=== PATIENT | female | born 1990 | race Caucasian/White ===

== ENCOUNTER 2018-12-08 06:00 | Inpatient (IN) | payer OTHER ==
[2018-12-08] MEDS ORDERED: ELECTROLYTE-148 SOLN 500 ML IV SCH (06:45)
[2018-12-08] MEDS ORDERED: CITRIC ACID/SODIUM CITRATE 30 ML UNIT-DOSE CUP PO ONE (06:45)
[2018-12-08] MEDS ORDERED: ELECTROLYTE-148 SOLN 1,000 ML IV SCH (06:45)
[2018-12-08 06:46] VITALS: BMI 33.3
--- NOTE | 2018-12-08 06:49 | HP ---
Past Medical History - Admission Chief Complaint: scheduked RLTCS History of Present Illness: 28yo @ 39wks here for scheduled RLTCS. Declined TOLAC. 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: Alzheimer's, CVA, Dementia, Migraine, Multiple Sclerosis, Peripheral Neuropathy, Parkinson's, Seizure, Syncope, TIA, Vertigo, Other Cardiovascular: No: AFIB, Aneurysm, Aortic Insufficiency, Aortic Stenosis, CAD, CHF, Deep Vein Thrombosis, HTN, Hyperlipdemia, [place], Mitral Insufficiency, Mitral Stenosis, Murmur, Pulmonary Hypertension, Other Gastrointestinal: No: Ascites, Cancer, Constipation, Crohn's Disease, Diverticulitis, Diverticulosis, Esophageal Varices, Gastritis, GERD, GI Bleed, Hemorrhoids, Hiatal Hernia, Inflamatory Bowel Disease, Irritable Bowel Disease, Pancreatitis, Peptic Ulcer Disease, Ulcerative Colitis, Other Hepatobiliary: No: Cirrhosis, Cholelithiasis, Cholecystitis, Choledocholithiasis , Hepatitis A, Hepatitis B, Hepatitis C, Other Renal/: No: Renal Failure, Renal Inusuff, BPH, Cancer, Hematuria, Hemodialysis , Neurogenic Bladder, Renal Calculi, UTI, Other Reproductive: No: Ectopic , Endometriosis, Fibroids, PID, Polycystic Ovary Syndrome, Postmenopausal, Other ...: 2 ...Para: 1 ...Term: 1 ...: 0 ...Spon : 0 ...Induced : 0 ...Multiple Gestation: 0 ... Weeks Gestation by Dates: 40.0 ...EDC by Dates: 12/08/18 Heme/Onc: No: Anemia, B12 Deficiency, Bleeding Disorder, Cancer, Current Chemotherapy, Current Radiation Therapy, Hemochromatosis, Hypercoaguable State, Myeloproliferative Synd, Sickle Cell Disease, Sickle Cell Trait, Thrombocytopenia, Other - Past Surgical History Past Surgical History: Yes: Hx Myomectomy: No Hx Transabdominal Cerclage: No - Smoking History Smoking history: Never smoked Have you smoked in the past 12 months: No - Alcohol/Substance Use Hx Alcohol Use: No Home Medications - Allergies Allergies/Adverse Reactions: Allergies Allergy/AdvReac Type Severity Reaction Status Date / Time No Known Allergies Allergy Verified 12/08/18 06:30 - Home Medications Home Medications: Ambulatory Orders Pnv No.95/Ferrous Fum/Folic AC [ Formula] 1 each PO DAILY 12/08/18 Physical Exam - Maternity Vital Signs: Vital Signs Temperature 98.0 F 12/08/18 06:00 Pulse Rate 79 12/08/18 06:00 Respiratory Rate 18 12/08/18 06:00 Blood Pressure 123/83 12/08/18 06:00 O2 Sat by Pulse Oximetry (%) Constitutional: Yes: Well Nourished, No Distress, Calm Cardiovascular: Yes: WNL, Regular Rate and Rhythm Lungs: Clear to auscultation, Normal air movement, Other Breast(s): Yes: WNL - Abdominal Exam/OB Number of Fetuses: Single Presentation: Vertex Contractions: No Regularity: Irregular Intensity: Unaware Monitor Mode: External Heart Rate Location: [facility] Category: I Accelerations: Non-Uniform Decelerations: None - Vaginal Exam/OB Vaginal Bleediing: No Speculum Exam: No Amniotic Membrane Status: Intact Presentation: Vertex/Position - Physical Exam Edema: No Assessment/Plan 28yo @ 39wks here for scheduled RLTCS Admit to L&D NPO, IVFs Cat I tracing Rekha Valdez Ancef Risk of procedure reviewed including bleeding, infection, injury to bladder/ bowel/adnexa/vessels/nerves. All questions answered in Macedonian. Consents signed Robina Nicolas MD
[2018-12-08] MEDS ORDERED: morphine SULFATE/PF 0.5 MG/ML (2cc Syringe - QUVA) ONE (08:11)
[2018-12-08] MEDS ORDERED: PHENYLEPHRINE HCL 10 MG/1 ML SINGLE DOSE VIAL ONE (08:11)
[2018-12-08] MEDS ORDERED: ONDANSETRON 4 MG/2 ML VIAL IVPUSH PRN (08:29)
[2018-12-08] MEDS ORDERED: ceFAZolin SODIUM 1 GM VIAL ONE ×2 (08:37)
[2018-12-08] MEDS ORDERED: OXYTOCIN 10 UNITS/ML VIAL ONE ×4 (08:37→09:01)
[2018-12-08] MEDS ORDERED: oxyCODONE HCL 5 MG TABLET PO PRN (09:17)
[2018-12-08] MEDS ORDERED: IBUPROFEN 600 MG TABLET (FP) PO PRN (09:17)
[2018-12-08] MEDS ORDERED: METHYLERGONOVINE MALEATE 0.2 MG/1 ML AMP IM PRN (09:17)
[2018-12-08] MEDS ORDERED: IBUPROFEN 800 MG/8 ML IJ IVPB PRN (09:17)
--- NOTE | 2018-12-08 09:17 | OP ---
Operative Note - Note: Operative Date: 12/08/18 Pre-Operative Diagnosis: Prior , 39 week , desires Elective Repeat Operation: Repeat Low Transverse Findings: VFI, LOT, Nuchal x 1, no meconium. Apgars 9/9. Weight 9.8lbs, normal right fallopian tube, right ovary not visualized, left tube and ovaries not visualized Post-Operative Diagnosis: Same as Pre-op Surgeon: Ela Nicolas Vineyardist: Berny Sapp Anesthesiologist/SEWING MACHINE OPERATOR PLASTIC ZIPPER: Kendall Buckner Anesthesia: Spinal Estimated Blood Loss (mls): 600 Drains, Volume Out (mls): 400 (clear urine) Operative Report Dictated: Yes
[2018-12-08] MEDS ORDERED: OXYTOCIN 20 UNITS in 0.9% NS 20 UNIT/1,000 ML INFUS.BAG IV SCH (09:30)
[2018-12-08] MEDS: PRENATAL VITAMINS W/ FOLIC ACID TABLET (FP) PO SCH (10:08)
[2018-12-08] MEDS ORDERED: OXYTOCIN 20 UNITS in 0.9% NS 20 UNIT/1,000 ML INFUS.BAG IV ONE (10:31)
--- NOTE | 2018-12-08 10:49 | OP ---
DATE OF OPERATION: 12/08/2018 PREOPERATIVE DIAGNOSIS: Prior section, 39-week , desires elective repair section. POSTOPERATIVE DIAGNOSIS: Prior section, 39-week , desires elective repair section. PROCEDURE: Repeat low transverse section. ANESTHESIA: Spinal. SURGEON: Ela Nicolas MD WORM FARMER: NELSON Meyers ESTIMATED BLOOD LOSS: 600. INTRAVENOUS FLUIDS: Per anesthesia record. URINE OUTPUT: 400 mL of clear urine at the end of the procedure. FINDINGS: Viable female infant, LOT presentation. Nuchal x1. No meconium. Apgars 9, 9. Weight 9 pounds 8 ounces. Normal right fallopian tube. Right ovary not verbalized. Left tube and ovary not visualized. NATURE OF THE PROCEDURE: After the appropriate consents were signed, the patient was taken to the operating room. Spinal anesthesia was administered. A Valdez catheter was inserted prior to entry into the operating room. Abdomen was prepped and draped in a normal sterile fashion. Anesthesia was confirmed. A time-out was performed confirming correct patient and procedure. Pfannenstiel incision was made through the prior incision, carried through to the underlying layers until the fascia was nicked in the midline. The fascia was then extended laterally with the Elise scissors. The inferior aspect of the fascia was grasped with the Ziggy clamps, tented upwards , and the rectus muscles dissected off bluntly. Attention was then paid to the superior aspect, which was taken down in a similar fashion. The rectus muscles are bluntly in the midline. The peritoneum was entered bluntly. Bladder blade was then inserted. The uterine serosa was nicked in the midline, extended laterally with the Elise scissors. The bladder flap was then created digitally. The uterus was then incised in a low transverse fashion. Clear amniotic fluid was noted. Infant's head was delivered without difficulty as were the shoulders and body. The cord was clamped, and the was handed off to the awaiting pediatric staff. Placenta was then removed manually. The uterus was cleared of all clot and debris. The hysterotomy was closed in 1 layers with a 1-0 Vicryl with good hemostasis. The adnexa could not sufficiently inspected due to adhesions from the peritoneum to the anterior uterine wall. A small window in this adhesion was seen on the patient's right side, and the fimbriated edge of the fallopian tube was then noted to be seen and appeared normal. Bladder blade was then removed. The muscle was reapproximated with a 2-0 chromic. The fascia was closed with 0 Vicryl. Subcutaneous tissue was closed with 3-0 plain. The skin was closed with a 4-0 Biosyn. Sponge, lap, needle counts were correct x3. The patient did receive 2 g of Ancef at the start of the procedure. She was taken from the operating room to the recovery area in stable condition. MD GAVIN DAVIS/[id number] MTDD
--- NOTE | 2018-12-08 11:37 | SURG ---
Surgery Roller Picker Note Roller Picker: Berny Sapp PA-C Date of Service: 12/08/18 Diagnosis: Prior , 39 week , desires Elective Repeat Procedure: Repeat Low Transverse I was present for the entirety of the operative procedure. For further detail, please refer to operative report. Visit type - Case Type Case Type: Scheduled - Emergency Emergency Visit: No - New patient This patient is new to me today: Yes Date on this admission: 12/08/18 - Critical Care Critical Care patient: No
[2018-12-09 07:16] LABS: BASO % 0.3 % (0-2.0); EOS % 0.3 % (0-4.5); HEMATOCRIT 30.4 % (32.4-45.2); HEMOGLOBIN 10.4 GM/dL (10.7-15.3); LYMPH % 16.2 % (8-40); MCH 30.1 pg (25.7-33.7); MCHC 34.3 g/dl (32.0-36.0); MEAN CELL VOLUME 87.8 fl (80-96); MEAN PLT VOLUME 9.2 fl (7.5-11.1); MONO % 4.6 % (3.8-10.2); NEUT % 78.6 % (42.8-82.8); PLATELET COUNT 220 K/MM3 (134-434); RBC 3.47 M/mm3 (3.60-5.2); RDW 13.9 % (11.6-15.6); WHITE BLOOD COUNT 11.7 K/mm3 (4.0-10.0)
--- NOTE | 2018-12-09 08:58 | PN ---
Post Progress Note - Subjective Subjective: ambulating, lochia decreased, voiding, passing gas. Post Day: 1 Type of Delivery: Repeat C/S Vital Signs: Vital Signs Temperature 98.4 F 12/09/18 06:00 Pulse Rate 68 12/09/18 06:00 Respiratory Rate 18 12/09/18 06:00 Blood Pressure 110/52 L 12/09/18 06:00 O2 Sat by Pulse Oximetry (%) 100 12/08/18 10:30 Breast Exam: Yes: Other Uterus: Yes: Fundus Firm Incision: Yes: [place] intact Abdomen/GI: Yes: Abdomen soft Lochia: Yes: Serosa Lochia, amount: Moderate Extremities: Yes: Calves non-tender Activity: Ambulating - Labs Labs: CBC WBC 11.7 K/mm3 (4.0-10.0) H 12/09/18 06:46 RBC 3.47 M/mm3 (3.60-5.2) L 12/09/18 06:46 Hgb 10.4 GM/dL (10.7-15.3) L 12/09/18 06:46 Hct 30.4 % (32.4-45.2) L 12/09/18 06:46 MCV 87.8 fl (80-96) 12/09/18 06:46 MCH 30.1 pg (25.7-33.7) 12/09/18 06:46 MCHC 34.3 g/dl (32.0-36.0) 12/09/18 06:46 RDW 13.9 % (11.6-15.6) 12/09/18 06:46 Plt Count 220 K/MM3 (134-434) 12/09/18 06:46 MPV 9.2 fl (7.5-11.1) 12/09/18 06:46 Absolute Neuts (auto) 9.2 K/mm3 (1.5-8.0) H 12/09/18 06:46 Neutrophils % 78.6 % (42.8-82.8) 12/09/18 06:46 Lymphocytes % 16.2 % (8-40) 12/09/18 06:46 Monocytes % 4.6 % (3.8-10.2) 12/09/18 06:46 Eosinophils % 0.3 % (0-4.5) 12/09/18 06:46 Basophils % 0.3 % (0-2.0) 12/09/18 06:46 Nucleated RBC % 0 % (0-0) 12/09/18 06:46 Assessment/Plan POD # 1 in stable condition -continue PP care
[2018-12-09] MEDS ORDERED: BISACODYL 10 MG SUPP.RECT RC PRN (09:17)
[2018-12-09] MEDS: IBUPROFEN 600 MG TABLET (FP) PO PRN (09:18)
[2018-12-09] MEDS: PRENATAL VITAMINS W/ FOLIC ACID TABLET (FP) PO SCH (09:20)
[2018-12-09] MEDS: ACETAMINOPHEN 325 MG TABLET (FP) PO PRN (09:20)
[2018-12-09] MEDS: SIMETHICONE 80 MG TAB.CHEW (FP) PO PRN (09:21)
--- NOTE | 2018-12-09 09:38 | PN ---
Progress Note (short form) - Note Progress Note: 28yoF s/p C/S + duramorph pain controlled. good result anesthetic car. no comps cont present meds and plan
[2018-12-10] MEDS: IBUPROFEN 600 MG TABLET (FP) PO PRN ×2 (00:10→17:40)
[2018-12-10] MEDS: ACETAMINOPHEN 325 MG TABLET (FP) PO PRN ×2 (00:10→17:41)
[2018-12-10] MEDS: SIMETHICONE 80 MG TAB.CHEW (FP) PO PRN (00:10)
--- NOTE | 2018-12-10 08:25 | PN ---
Post Progress Note - Subjective Subjective: c/o pain at op site scale 5/10 voiding without difficulty Post Day: 2 Type of Delivery: Repeat C/S Vital Signs: Vital Signs Temperature 99.1 F 12/09/18 22:00 Pulse Rate 76 12/09/18 22:00 Respiratory Rate 18 12/09/18 22:00 Blood Pressure 112/67 12/09/18 22:00 O2 Sat by Pulse Oximetry (%) 100 12/08/18 10:30 Breast Exam: Yes: Soft, Other (trying to BF). No: Engorged Uterus: Yes: Fundus Firm, Fundus below umbilicus, Non-tender Incision: Yes: Sutures intact. No: Redness, Oozing, Other Abdomen/GI: Yes: Abdomen soft, Passing flatus (BM done ), Tolerating PO (diet ) . No: Abdominal Distention, Tender Lochia: Yes: Rubra Lochia, amount: Moderate Extremities: Yes: Calves non-tender Perineum: Yes: Intact Activity: Ambulating - Labs Labs: CBC WBC 11.7 K/mm3 (4.0-10.0) H 12/09/18 06:46 RBC 3.47 M/mm3 (3.60-5.2) L 12/09/18 06:46 Hgb 10.4 GM/dL (10.7-15.3) L 12/09/18 06:46 Hct 30.4 % (32.4-45.2) L 12/09/18 06:46 MCV 87.8 fl (80-96) 12/09/18 06:46 MCH 30.1 pg (25.7-33.7) 12/09/18 06:46 MCHC 34.3 g/dl (32.0-36.0) 12/09/18 06:46 RDW 13.9 % (11.6-15.6) 12/09/18 06:46 Plt Count 220 K/MM3 (134-434) 12/09/18 06:46 MPV 9.2 fl (7.5-11.1) 12/09/18 06:46 Absolute Neuts (auto) 9.2 K/mm3 (1.5-8.0) H 12/09/18 06:46 Neutrophils % 78.6 % (42.8-82.8) 12/09/18 06:46 Lymphocytes % 16.2 % (8-40) 12/09/18 06:46 Monocytes % 4.6 % (3.8-10.2) 12/09/18 06:46 Eosinophils % 0.3 % (0-4.5) 12/09/18 06:46 Basophils % 0.3 % (0-2.0) 12/09/18 06:46 Nucleated RBC % 0 % (0-0) 12/09/18 06:46 Problem List - Problems (1) Status post section routine follow-up Code(s): Z39.2 - ENCOUNTER FOR ROUTINE FOLLOW-UP; Z98.891 - HISTORY OF UTERINE SCAR FROM PREVIOUS SURGERY Assessment/Plan stable ct po care
[2018-12-10] MEDS: PRENATAL VITAMINS W/ FOLIC ACID TABLET (FP) PO SCH (09:09)
[2018-12-10] MEDS ORDERED: FLU VACCINE QUAD 60 MCG/0.5 ML (MDV 19-20) IM ONE (10:00)
[2018-12-10] MEDS ORDERED: FLU VACC QS2019-20(6MOS UP)/PF 60 MCG/0.5 ML SYRINGE IM ONE (10:00)
--- NOTE | 2018-12-10 17:52 | PATH ---
Surgical Pathology Report Patient Name: REDDY MUSE Med. Rec. #: [id number] /Age/Gender: 1990 (Age: 28) / F Account: [id number] Location: [facility] OBS/MOSAIC WORKER Taken: 12/08/2018 Received: 12/09/2018 Reported: 12/10/2018 Physicians: Ela Nicolas Specimen(s) Received PLACENTA Clinical History , 40 weeks Final Diagnosis PLACENTA, SECTION: 758 G THIRD TRIMESTER PLACENTA WITH TRIVASCULAR UMBILICAL CORD AND UNREMARKABLE PLACENTAL MEMBRANES. Electronically Signed Diann Santos M.D. Gross Description The specimen is received fresh labeled placenta and is a 758 gram, 20 x 19 x 1.5 cm. placenta with attached membranes and umbilical cord. The attached membranes are lux-almonte, opaque and insert marginally. The umbilical cord measures 48 cm. in length and averages 1.7 cm. in diameter. The cord inserts eccentrically, 4 cm. to the nearest margin. No true knots or strictures are identified. Cut surface of the umbilical cord reveals 3 vessels. The surface is lux-blue with minimal fibrin deposition and appropriate caliber vessels. The maternal surface is red-brown with focal defects. Sectioning reveals red-brown, spongy parenchyma. No lesions are identified. Multiple Effect Evaporator Operator sections are submitted in three cassettes as follows: 1- membrane rolls and umbilical cord; 2-3- full thickness sections of placenta. MLSZ/12/09/2018 sanml/12/09/2018
[2018-12-11 07:53] LABS: BASO % 0.5 % (0-2.0); EOS % 2.3 % (0-4.5); HEMATOCRIT 27.1 % (32.4-45.2); HEMOGLOBIN 9.3 GM/dL (10.7-15.3); LYMPH % 22.3 % (8-40); MCH 30.2 pg (25.7-33.7); MCHC 34.4 g/dl (32.0-36.0); MEAN PLT VOLUME 8.9 fl (7.5-11.1); MONO % 6.5 % (3.8-10.2); NEUT % 68.4 % (42.8-82.8); PLATELET COUNT 264 K/MM3 (134-434); RBC 3.08 M/mm3 (3.60-5.2); RDW 14.3 % (11.6-15.6); WHITE BLOOD COUNT 8.2 K/mm3 (4.0-10.0)
--- NOTE | 2018-12-11 08:22 | DS ---
Physical Examination Vital Signs: Vital Signs Temperature 98.4 F 12/10/18 21:35 Pulse Rate 72 12/10/18 21:35 Respiratory Rate 20 12/10/18 21:35 Blood Pressure 128/80 12/10/18 21:35 O2 Sat by Pulse Oximetry (%) 100 12/08/18 10:30 Constitutional: Yes: Well Nourished, No Distress, Calm Eyes: Yes: WNL, Conjunctiva Clear, EOM Intact HENT: Yes: WNL, Atraumatic, Normocephalic Neck: Yes: WNL, Supple, Trachea Midline Cardiovascular: Yes: WNL, Regular Rate and Rhythm Respiratory: Yes: WNL, Regular, CTA Bilaterally Gastrointestinal: Yes: WNL, Normal Bowel Sounds Musculoskeletal: Yes: WNL Extremities: Yes: WNL Edema: No Integumentary: Yes: WNL Neurological: Yes: WNL, Alert, Oriented ...Motor Strength: WNL Psychiatric: Yes: WNL Discharge Summary Problems reviewed: Yes Reason For Visit: SCHEDULED C SECTION Current Active Problems Status post section routine follow-up (Acute) Procedures: Principal: RLTCS Hospital Course: Patient presented for a scheduled RLTCS She had an uncomplicated RLTCS She met all postoperative milestones She was discharged home in stable condition Robina Nicolas MD Health Concerns: None Plan of Treatment: Routine visit Goals: NA Condition: Stable - Instructions Diet, Activity, Other Instructions: Regular Diet Follow up in 4-[address] Nicolas for your visit Referrals: Ela Nicolas MD [Staff Physician] - Disposition: HOME - Home Medications Comprehensive Discharge Medication List: Ambulatory Orders Pnv No.95/Ferrous Fum/Folic AC [ Formula] 1 each PO DAILY 12/08/18 Ibuprofen [Motrin -] 600 mg PO QID PRN #28 tablet 12/11/18 Oxycodone HCl/Acetaminophen [Percocet 5-325 mg Tablet -] 1 - 2 tab PO Q6H PRN # 20 tab MDD 4 12/11/18
[2018-12-11] MEDS: PRENATAL VITAMINS W/ FOLIC ACID TABLET (FP) PO SCH (11:48)
[2018-12-11 13:46] VITALS: BP 120/76; PULSE 67; TEMP 97.8
== END 2018-12-11 14:00 | disposition home or self-care (01) | DRG 540 ==
LOC: JLDR 06:00 → J3W 10:41
PROVIDERS: ADMIT Obstetrics & Gynecology; ATTEND Obstetrics & Gynecology
PROC: 10D00Z1 Extraction of Products of Conception, Low, Open Approach (ICD-10-PCS; principal; 2018-12-08)
DX: O34.211 Maternal care for low transverse scar from previous cesarean delivery (principal); O69.81X0 Labor and delivery complicated by cord around neck, without compression, not applicable or unspecified; Z3A.39 39 weeks gestation of pregnancy; Z37.0 Single live birth
CPT/HCPCS: 36415; 85025; 88307-TC; 90686